=== PATIENT | male | born 1985 | race Caucasian/White ===

== ENCOUNTER 2022-07-09 21:24 | Emergency (ER) | payer SELFPAY | END 2022-07-10 00:30 | LOC: JD.ED 21:24 | DX: Z53.21 Procedure and treatment not carried out due to patient leaving prior to being seen by health care provider (principal) ==

== ENCOUNTER 2022-07-11 20:49 | Emergency (ER) | payer SELFPAY | END 2022-07-11 20:50 | LOC: JD.ED 20:49 | DX: Z53.21 Procedure and treatment not carried out due to patient leaving prior to being seen by health care provider (principal) ==